=== PATIENT | female | born 1990 | race Caucasian/White ===

== ENCOUNTER → 2018-06-18 11:59 | Outpatient (CLI) | payer SELFPAY | END | disposition home or self-care (01) | LOC: D.LDO 11:59 | DX: O36.5990 Maternal care for other known or suspected poor fetal growth, unspecified trimester, not applicable or unspecified (principal); Z3A.00 Weeks of gestation of pregnancy not specified ==

== ENCOUNTER → 2018-06-25 14:44 | Outpatient (CLI) | payer SELFPAY | END | disposition home or self-care (01) | LOC: D.LDO 14:44 | DX: O26.893 Other specified pregnancy related conditions, third trimester (principal); Z3A.29 29 weeks gestation of pregnancy ==

== ENCOUNTER 2018-06-29 14:20 | Outpatient (CLI) | payer OTHER | END 2018-06-29 14:56 | LOC: D.LDO 14:20 | DX: O36.5930 Maternal care for other known or suspected poor fetal growth, third trimester, not applicable or unspecified (principal); Z3A.30 30 weeks gestation of pregnancy ==

== ENCOUNTER → 2018-07-02 12:24 | Outpatient (CLI) | payer SELFPAY | END | disposition home or self-care (01) | LOC: D.LDO 12:24 | DX: O36.5930 Maternal care for other known or suspected poor fetal growth, third trimester, not applicable or unspecified (principal); Z3A.30 30 weeks gestation of pregnancy ==

== ENCOUNTER → 2018-07-06 16:29 | Outpatient (CLI) | payer SELFPAY | END | disposition home or self-care (01) | LOC: D.LDO 16:29 | DX: O36.5930 Maternal care for other known or suspected poor fetal growth, third trimester, not applicable or unspecified (principal); Z3A.31 31 weeks gestation of pregnancy ==

== ENCOUNTER → 2018-07-09 15:35 | Outpatient (CLI) | payer SELFPAY | END | disposition home or self-care (01) | LOC: D.LDO 15:35 | DX: O36.5930 Maternal care for other known or suspected poor fetal growth, third trimester, not applicable or unspecified (principal); Z3A.31 31 weeks gestation of pregnancy ==

== ENCOUNTER → 2018-07-13 13:13 | Outpatient (CLI) | payer SELFPAY | END | disposition home or self-care (01) | LOC: D.LDO 13:13 | DX: O36.5930 Maternal care for other known or suspected poor fetal growth, third trimester, not applicable or unspecified (principal); Z3A.32 32 weeks gestation of pregnancy ==

== ENCOUNTER → 2018-07-16 11:53 | Outpatient (CLI) | payer SELFPAY | END | disposition home or self-care (01) | LOC: D.LDO 11:53 | DX: O26.899 Other specified pregnancy related conditions, unspecified trimester (principal); Z3A.00 Weeks of gestation of pregnancy not specified ==

== ENCOUNTER → 2018-07-20 14:50 | Outpatient (CLI) | payer SELFPAY | END | disposition home or self-care (01) | LOC: D.LDO 14:50 | DX: O36.5930 Maternal care for other known or suspected poor fetal growth, third trimester, not applicable or unspecified (principal); Z3A.33 33 weeks gestation of pregnancy ==

== ENCOUNTER → 2018-07-23 12:57 | Outpatient (CLI) | payer SELFPAY | END | disposition home or self-care (01) | LOC: D.LDO 12:57 | DX: O36.5930 Maternal care for other known or suspected poor fetal growth, third trimester, not applicable or unspecified (principal); Z3A.33 33 weeks gestation of pregnancy ==

== ENCOUNTER → 2018-07-27 15:45 | Outpatient (CLI) | payer SELFPAY | END | disposition home or self-care (01) | LOC: D.LDO 15:45 | DX: O36.5930 Maternal care for other known or suspected poor fetal growth, third trimester, not applicable or unspecified (principal); Z3A.34 34 weeks gestation of pregnancy ==

== ENCOUNTER → 2018-07-30 18:32 | Outpatient (CLI) | payer SELFPAY | END | disposition home or self-care (01) | LOC: D.LDO 18:32 | DX: O36.5930 Maternal care for other known or suspected poor fetal growth, third trimester, not applicable or unspecified (principal); Z3A.34 34 weeks gestation of pregnancy ==

== ENCOUNTER → 2018-08-06 13:14 | Outpatient (CLI) | payer SELFPAY | END | disposition home or self-care (01) | LOC: D.LDO 13:14 | DX: O36.5930 Maternal care for other known or suspected poor fetal growth, third trimester, not applicable or unspecified (principal); Z3A.35 35 weeks gestation of pregnancy ==

== ENCOUNTER → 2018-08-13 09:09 | Outpatient (CLI) | payer SELFPAY | END | disposition home or self-care (01) | LOC: D.LDO 09:09 | DX: O36.5930 Maternal care for other known or suspected poor fetal growth, third trimester, not applicable or unspecified (principal); Z3A.36 36 weeks gestation of pregnancy ==

== ENCOUNTER → 2018-08-17 15:56 | Outpatient (CLI) | payer SELFPAY | END | disposition home or self-care (01) | LOC: D.LDO 15:56 | PROVIDERS: ATTEND Obstetrics & Gynecology | DX: O26.893 Other specified pregnancy related conditions, third trimester (principal); Z3A.37 37 weeks gestation of pregnancy ==

== ENCOUNTER → 2018-08-31 11:19 | Outpatient (CLI) | payer SELFPAY ==
[~2018-08-31 11:19] MED LIST: IBUPROFEN800 MG PO; PRENAVITE1 TAB PO
[2018-09-03 16:22] VITALS: BMI 29.5
== END | disposition home or self-care (01) ==
LOC: D.LDO 11:19
PROVIDERS: ATTEND Obstetrics & Gynecology
DX: O47.9 False labor, unspecified (principal); Z3A.00 Weeks of gestation of pregnancy not specified

== ENCOUNTER 2018-09-03 15:26 | Inpatient (IN) | payer OTHER ==
[~2018-09-03] VITALS: Ht 157.5 cm; Wt 73.2 kg
[2018-09-03] MEDS ORDERED: PRENAVITE1 TAB PO (16:11)
[2018-09-03 16:21] LABS: HEMATOCRIT 35.7 % (36.0-48.0); MCH 27.9 pg (26.0-34.0); MCHC 33.6 g/dL (31.0-37.0); MEAN PLATELET VOLUME 10.9 fL (7.4-10.4); RBC 4.3 10x6/uL (4.00-5.40); RDW 13.8 % (11.5-14.5); WBC 8.6 10x3/uL (4.8-10.8)
[2018-09-03 16:22] VITALS: BP 120/67; Ht 157.5 cm; Wt 73.2 kg
[2018-09-03 20:53] LABS: APPEARANCE CLEAR (CLEAR); BILIRUBIN NEGATIVE (NEGATIVE); COLOR YELLOW (YELLOW); GLUCOSE NEGATIVE (NEGATIVE); KETONE NEGATIVE (NEGATIVE); NITRITE NEGATIVE (NEGATIVE); PROTEIN TRACE mg/dL (NEGATIVE); UROBILINOGEN NORMAL (NORMAL)
[2018-09-03 20:57] LABS: RED CELLS - URINE 25-50 /hpf (0-5)
[2018-09-03 20:58] LABS: BACTERIA FEW /hpf (NONE SEEN); EPITHELIAL CELLS 0-5 /hpf (0-5)
--- NOTE | 2018-09-04 04:30 | NUR ---
TRANSFERRED TO 1273 VIA WHEELCHAIR. PT. ORIENTED TO ROOM, CALL SYSTEM AND TEMP. CONTROL FOR ROOM. PT. REMARKS THAT BED IS MUCH SOFTER. SOFA BED PULLED OUT FOR FOB. FUNDUS FIRM AND MIDLINE AT U/2. PIO MCCARTNEY MOD.
--- NOTE | 2018-09-04 04:45 | NUR ---
MOTRIN GIVEN ORDERED. PT. DENIES ANY PAIN AT THIS TIME. TUCKS AND DERMOPLAST SPRAY ISSUED TO PT. AND DISCUSSED WITH PT. HOW TO USE. PT. HAS USED DERMOPLAST SPRAY WITH HER LAST DELIVERY. EXPLAINED TUCKS USE AND PT. STATES UNDERSTANDING TO ALL. ENCOURAGED PT. THAT NEXT TIME TO VOID TO CALL NURSE SO THEY CAN HELP HER WITH BOTH TUCKS AND DERMOPLAST. PT. STATES UNDERSTANDING.
--- NOTE | 2018-09-04 04:50 | NUR ---
ICE CAP GIVEN TO PT. TO APPLY TO PERINEAL AREA AFTER COMPLETED. PT. ACKNOWLEDGED THAT SHE UNDERSTOOD WHERE ICE CAP WAS TO BE PLACED. IS TO CALL THIS NURSE WITH QUESITONS OR IF SHE NEEEDS ASSISTANCE.
--- NOTE | 2018-09-04 05:13 | NUR ---
BF INFANT USING NIPPLE SHEILD ON LEFT SIDE. STATES THAT LEFT NIPPLE IS BLEEDING, BLOOD NOTED IN SHEILD. INSTRUCTED PT ON NIPPLE CARE, SMALL CRACK NOTED. LANOLIN PROVIDED. ASSISTED PT WITH GETTING INFANT LATCHED TO RIGHT SIDE AND TECHNIQUES TO PROMOTE GOOD LATCH, DEMONSTRATES UNDERSTANDING. DENIES NEEDS, REPORTS THAT SHE IS HAVING "A LITTLE CRAMPING BUT THE MOTRIN HAS HELPED." SPOUSE AT BEDSIDE, SUPPORTIVE AND ATTENTIVE TO PT AND INFANT NEEDS. BED IN LOW POSITION WITH UPPER SIDE RAILS RAISED X2. CALL LIGHT AND PHONE WITHIN REACH.
--- NOTE | 2018-09-04 06:35 | NUR ---
PT. CALLED REQUESTING AIR TURNED COOLER IN ROOM. SAME DONE. PT. STATES THAT SHE IS SWEATING. FOB SLEEPING ON SOFA. STATES SHE IS TOO EXCITED TO SLEEP.
--- NOTE | 2018-09-04 06:57 | NUR ---
PT. REPORTS THAT SHE HAS FELT HOT AND NOW SWEATING. TEMP. 98.5 AXILLARY
--- NOTE | 2018-09-04 07:35 | NUR ---
ASSUMED CARE OF THIS PATIENT. SITTING UP IN BED TALKING TO FOB. INFANT IN NURSERY. BREAKFAST TRAY AT BEDSIDE. WILL COMPLETE SHIFT ASSESSMENT AFTER BREAKFAST. DENIES PAIN. ASKED FOR FRESH ICE PACK AND WATER WHICH WERE BOTH GIVEN. CALL LIGHT IN REACH.
[2018-09-04 08:14] VITALS: BP 109/67
--- NOTE | 2018-09-04 08:14 | NUR ---
SHIFT ASSESSMENT COMPLETED. NO REQUESTS. IN ROOM, FOB IN ROOM. SIDE RAILS UP X 2, CALL LIGHT IN REACH.
--- NOTE | 2018-09-04 09:45 | NUR ---
SITTING UP IN BED TALKING TO VISITORS, INFANT REMAINS IN ROOM. NO CURRENT REQUESTS. A+ RUBELLA IMMUNE.
--- NOTE | 2018-09-04 10:20 | NUR ---
SITTING UP IN BED TALKING TO VISITORS. PLANS TO TAKE SHOWER AFTER VISITORS LEAVE TODAY. DENIES NEEDING ANYTHING. SIDE RAILS UP X 2, CALL LIGHT IN REACH. TO CALL IF ANYTHING IS NEEDED. ACCORDING TO IMMUNIZATIONS RECORDS, TDAP WAS LAST RECEIVED 09/08/2016.
--- NOTE | 2018-09-04 11:30 | NUR ---
PT CALLS RN TO ROOM. THIS RN TO ROOM. PT REQUESTING FOR URINE BAG TO BE APPLIED TO INFANT. NO DISTRESS NOTED IN INFANT. PT DENIES ALL NEEDS AT THIS TIME, AND IS LAUGHING, FAMILY AT BEDSIDE. PT STATES "I WAS SO HOPING YOU WOULD BE HERE YESTERDAY WHEN I HAD HER. I WENT TO MY DOCTOR'S APPT AND DR. ZULUAGA ASKED ME IF I WANTED TO BE INDUCED BECAUSE THEY WEREN'T BUSY ON LABOR AND DELIVERY, SO SHE STRIPPED MY MEMBRANES, AND HERE I AM". PT PLACES INFANT TO BREAST. SRUP X2, CALL LIGHT AND PHONE WITHIN REACH.
--- NOTE | 2018-09-04 12:39 | NUR ---
SITTING UP IN BED GETTING READY TO EAT LUNCH. VISITORS AND IN ROOM. DENIES PAIN EXCEPT SLIGHT CRAMPING WHEN . DISCUSSED CRAMPS WITH . SCHEDULED TYLENOL WAS GIVEN. DESIRES SCHEDULED MOTRIN AFTER LUNCH. TO CALL IF ANYTHING IS NEEDED.
[2018-09-04 13:39] VITALS: BP 107/71
--- NOTE | 2018-09-04 13:45 | NUR ---
SITTING UP IN BED HOLDING IN ARMS. FINISHED LUNCH. VISITORS IN ROOM. DENIES PAIN OR NEEDING ANYTHING AT THIS TIME. GETTING READY TO GET UP TO VOID. U/2 FIRM MIDLINE. SHERRILL ROOT. INSTRUCTED OK TO USE ICE PACK PRN. USING CARO-BOTTLE WITH BETADINE AFTER VOIDING. TO CALL IF ANYTHING IS NEEDED.
--- NOTE | 2018-09-04 16:22 | NUR ---
REQUESTED SALINE LOCK TO BE REMOVED STATES "IT'S BOTHERING ME". SALINE LOCK REMOVED WITH TIP INTACT. DESIRES TO WAIT UNTIL VISITORS LEAVE BEFORE TAKING SHOWER. ENCOURAGED TO GET OOB AND AMBULATE MORE THAN JUST GOING TO THE BATHROOM. ALSO ENCOURAGED TO AVOID CROSSING LEGS OR PROLONG BENDING AT KNEES TO PREVENT BLOOD CLOTS. VERBALIZED UNDERSTANDING. SIDERAILS UP X 2, CALL LIGHT IN REACH. IN ARMS. VISITORS X 2 IN ROOM.
--- NOTE | 2018-09-04 18:04 | NUR ---
SITTING UP IN BED TALKING TO VISITORS. FINISHED EATING DINNER. NO REQUESTS. FRESH WATER GIVEN. USING ICE PACK TO PERINEAM PRN. INFANT IN ROOM. SIDE RAILS UP X 2, CALL LIGHT IN REACH.
--- NOTE | 2018-09-04 18:42 | NUR ---
BEDSIDE REPORT GIVEN. PT. CURRENTLY . REPORTS THAT INFANT IS MORE RECEPTIVE WITH TODAY. PT. CHEERFUL. REPORTS LOTS OF VISITORS TODAY SO SHE HASN'T SLEPT TODAY.
--- NOTE | 2018-09-04 19:29 | NUR ---
PT. CONTINUES TO BREASTFEED. WILL PERFORM ASSESSMENT WHEN FINISHED . PT. INSTRUCTED TO CALL THIS NURSE AND PT. STATES UNDERSTANDING.
[2018-09-04 20:02] VITALS: BP 106/70
--- NOTE | 2018-09-04 20:02 | NUR ---
PT. CALLED TO REPORT THAT SHE HAS COMPLETED . INTO ROOM . PT. SITTING ON SIDE OF BED EATING FOOD BROUGHT FROM OUTSIDE. PT. CHEERFUL AND DENIES ANY PAIN. FUNDUS FIRM U/2 AND MIDLINE. LOCHIA RUBRA SCANT TO MOD. VITAL SIGNS OBTAINED. BREATH SOUNDS CLEAR AND BOWEL SOUNDS ACTIVE. DENIES ANY PAIN IN LEGS. REPORTS THAT SHE IS TIRED. STATES SHE WILL SEND BACK TO [facility] [place] SO SHE CAN REST.
--- NOTE | 2018-09-04 20:20 | NUR ---
LEMON CHALKYITSIK DRINKS SERVED TO PT. AND SPOUSE. VISITOR IN ROOM.
--- NOTE | 2018-09-04 21:37 | NUR ---
INTO ROOM FOR MEDICATION ADMINISTRATION. PT. STATES THAT SHE IS READY TO SLEEP TONIGHT. DISCUSSED WITH PT. SCHEDULED TYLENOL AND MOTRIN SCHEDULE. PT. WILL CALL THIS NURSE IF MEDICATION NEEDED OR WHEN BABY OUT TO BREASTFEED FOR MED. ADMINISTRATION BUT PREFERS NOT TO BE AWAKENED FOR MEDS. DISCUSSED WITH PT. SITZ BATH AND CAN FIX FOR PATIENT AT ANY TIME. PT. STATES THAT SHE PREFERS TO TAKE SITZ BATH IN AM. RATES PAIN A 0 OF 10 ON PAIN SCALE. DENIES ANY NEEDS AT THIS TIME. FOB REMAINS IN ROOM WITH PT.
--- NOTE | 2018-09-04 22:25 | NUR ---
INFANT RETURNED TO N AND INSTRUCTED NURSERY NURSE TO GIVE BOTTLE IF NECESSARY SO SHE (PT) COULD SLEEP.
--- NOTE | 2018-09-04 23:43 | NUR ---
LYING ON LT SIDE WITH EYES CLOSED. RESPIRATIONS UNLABORED. FOB ASLEEP ON SOFA. TV ON IN ROOM WITH VOLUME LOW.
--- NOTE | 2018-09-05 01:00 | NUR ---
PT. CALLED NBN TO ASK ABOUT COMING TO ROOM FOR FEEDING. INFORMED THAT BLOOD WORK WOULD BE DRAWN AT 0130 AND THEN OUT AFTER THAT.
--- NOTE | 2018-09-05 02:04 | NUR ---
INFANT IN ROOM FOR . PT. DENIES ANY NEEDS AT THIS TIME.
--- NOTE | 2018-09-05 03:30 | NUR ---
PT. STANDING BESIDE OPEN CRIB WITH ASLEEP. DESIRES INFANT RETURNED TO NBN SO SHE CAN SLEEP. INFANT TAKEN TO NBN PER THIS NURSE. PT. DENIES ANY NEEDS. FOB SLEEPING ON SOFA.
--- NOTE | 2018-09-05 05:37 | NUR ---
LYING ON BACK WITH EYES CLOSED. RESPIRATIONS UNLABORED.
[2018-09-05 06:39] LABS: BASOPHILS 0.2 % (0-2); EOSINOPHILS 0.6 % (0-7); HEMATOCRIT 32.8 % (36.0-48.0); HEMOGLOBIN 10.5 g/dL (12-16); IMMATURE GRANULOCYTES 0.3 % (0-5); LYMPHOCYTES 19.6 % (15-50); MCH 27.3 pg (26.0-34.0); MEAN PLATELET VOLUME 10.7 fL (7.4-10.4); MONOCYTES 8.2 % (2-11); NEUTROPHILS 71.1 % (40-80); PLATELET COUNT 164 10x3/uL (130-400); RBC 3.84 10x6/uL (4.00-5.40); RDW 14.2 % (11.5-14.5); WBC 10.7 10x3/uL (4.8-10.8)
[2018-09-05 06:40] LABS: MCV 85.4 fL (80.0-100.0)
--- NOTE | 2018-09-05 08:12 | NUR ---
SITTING UP IN BED HOLDING IN ARMS. FOB IN ROOM. Allen CAMPBELL RN NURSERY AT BEDSIDE AND WILL OBTAIN SET VITAL SIGNS. NO REQUESTS. SIDE RAILS X 2, CALL LIGHT IN REACH.
[2018-09-05 08:13] VITALS: BP 119/73
[2018-09-05] MEDS ORDERED: IBUPROFEN800 MG PO (09:06)
--- NOTE | 2018-09-05 10:30 | NUR ---
DC INSTRUCTIONS COMPLETED TO INCLUDE ROUTINE PP CARE, PP DEPRESSION, BREAST/BOTTLE FEEDING, S&S INFECTIONS, DANGER SIGNS, FLU VACCINE, MEDICATION ADMINISTRATION AND FOLLOW-UP. RH POSITIVE, RUBELLA IMMUNE, DECLINES FLU VACCINATION, TDAP LAST RECEIVED 2016 WILL BE DUE IN 2026 FOR BOOSTER. NO SPECIFIC QUESTIONS ASKED AT THIS TIME. WILL DC HOME WITH INFANT.
--- NOTE | 2018-09-05 11:29 | NUR ---
DC'D VIA WHEELCHAIR BY [employer]IPMENT INSTALLER. IN CARSEAT. PT HAS DC INSTRUCTIONS AND ALL BELONGINGS REMOVED FROM ROOM. NO WRITTEN PRESCRIPTIONS WERE LEFT IF PT CHART, MD OFTEN SENDS E-SCRIPTS. NOTED IN MD NOTES THAT PATIENT TO RETURN IN 2 WKS AND 6 WKS FOR PP EXAM AND MD SAID NO DRIVING X 2 WKS VS 1 WK. PT INFORMED OF THIS INFORMATION AND VERBALIZED UNDERSTANDING. HAS APPOINTMENT ALREADY SCHEDULED FOR FIRST WEEK IN SEPTEMBER.
== END 2018-09-05 11:29 | disposition home or self-care (01) | DRG 806 ==
LOC: D.LD 15:26
PROVIDERS: ADMIT Obstetrics & Gynecology; ATTEND Obstetrics & Gynecology
PROC: 10E0XZZ Delivery of Products of Conception, External Approach (ICD-10-PCS; principal; 2018-09-04)
PROC: 10907ZC Drainage of Amniotic Fluid, Therapeutic from Products of Conception, Via Natural or Artificial Opening (ICD-10-PCS; 2018-09-04)
PROC: 3E033VJ Introduction of Other Hormone into Peripheral Vein, Percutaneous Approach (ICD-10-PCS; 2018-09-04)
DX: O70.1 Second degree perineal laceration during delivery (principal); O36.0130 Maternal care for anti-D [Rh] antibodies, third trimester, not applicable or unspecified; Z37.0 Single live birth; O99.02 Anemia complicating childbirth; Z3A.39 39 weeks gestation of pregnancy; O36.5930 Maternal care for other known or suspected poor fetal growth, third trimester, not applicable or unspecified